=== PATIENT | female | born 1990 | race Caucasian/White ===

== ENCOUNTER 2016-08-09 15:21 | Emergency (ER) | payer OTHER ==
[2016-08-09 15:47] VITALS: RESP 16
--- NOTE | 2016-08-09 16:06 | EDPHY ---
H & P Stated Complaint: H/A, visual changes in R eye this morning;slight nausea.Better now Time Seen by Provider: 08/09/16 15:58 HPI/ROS: CHIEF COMPLAINT: Headache and blurry vision HISTORY OF PRESENT ILLNESS: The patient presents to the ED after she developed headache and blurry vision earlier today. The patient does report she had a history of frequent headaches protect the does not have visual complaints. The patient denies any history of fall or trauma. She denies neck pain or cervical manipulation. The patient denies any numbness or weakness in her extremities. The patient states that her headache has improved. She continues to complain of mild blurry vision in her right eye. She denies additional acute complaints aside from mild nausea. REVIEW OF SYSTEMS: A comprehensive 10 point review of systems is otherwise negative aside from elements mentioned in the history of present illness. Source: Patient Exam Limitations: No limitations - Personal History LMP (Females 10-55): Now Current Tetanus Diphtheria and Acellular Pertussis (TDAP): Yes Tetanus Vaccine Date: 2006 - Medical/Surgical History Hx Asthma: Yes Other PMH: neg per hx - Social History Smoking Status: Never smoked - Physical Exam Exam: General Appearance: Alert, no distress Eyes: Pupils equal and round no pallor or injection ENT, Mouth: Mucous membranes moist Respiratory: There are no retractions, lungs are clear to auscultation Cardiovascular: Regular rate and rhythm Gastrointestinal: Abdomen is soft and nontender, no masses, bowel sounds normal Neurological: A&O, normal motor function, normal sensory exam, normal cranial nerves Skin: Warm and dry, no rashes Musculoskeletal: Neck is supple nontender Extremities: symmetrical, full range of motion Constitutional: Initial Vital Signs Temperature (C) 36.6 C 08/09/16 15:35 Heart Rate 85 08/09/16 15:35 Respiratory Rate 16 08/09/16 15:35 Blood Pressure 136/72 H 08/09/16 15:35 O2 Sat (%) 99 08/09/16 15:35 O2 Delivery Mode Room Air Allergies/Adverse Reactions: acetaminophen Allergy (Intermediate, Verified 08/09/16 15:44) Hives latex [Latex] Allergy (Mild, Verified 06/17/10 01:12) Rash Home Medications: Medication Instructions Recorded NK [No Known Home Meds] 08/09/16 Medical Decision Making ED Course/Re-evaluation: The patient had an IV established. She received a L of normal saline. The patient was offered Toradol and Phenergan but declined. The patient's CBC and chemistries are within normal limits. The patient had serial examinations in the ED by myself over a 2 hour period. The patient states that her headache blurry vision have both resolved. She does complain of mild ongoing nausea. At this point time I do believe the patient likely experienced a migraine headache characterized by headache, blurry vision and nausea. The patient has declined any medications in the emergency department. The patient specifically has no evidence of fever or any abnormalities noted on her neurologic examination. At this point time I do feel that she can be discharged home. She does understand to return to the ED for recurrent headache, development of any abnormal neurologic symptoms, fever or other concerns. She will follow up with her primary care provider at the [facility]. She is also been given the telephone number of the neurologist at the [facility]. Differential Diagnosis: Differential diagnosis considered includes tension headache, metabolic abnormality, state, migraine headache - Data Points Laboratory Results: Laboratory Results 08/09/16 16:20 08/09/16 16:20 08/09/16 08/09/16 08/09/16 16:28 16:20 16:20 WBC 6.80 10^3/uL 10^3/uL (3.80-9.50) RBC 4.92 10^6/uL 10^6/uL (4.18-5.33) Hgb 15.0 g/dL g/dL (12.6-16.3) Hct 43.5 % % (38.0-47.0) MCV 88.4 fL fL (81.5-99.8) MCH 30.5 pg pg (27.9-34.1) MCHC 34.5 g/dL g/dL (32.4-36.7) RDW 12.5 % % (11.5-15.2) Plt Count 271 10^3/uL 10^3/uL (150-400) MPV 10.0 fL fL (8.7-11.7) Neut % (Auto) 55.3 % % (39.3-74.2) Lymph % (Auto) 34.9 % % (15.0-45.0) Louisa % (Auto) 6.5 % % (4.5-13.0) Eos % (Auto) 2.8 % % (0.6-7.6) Baso % (Auto) 0.4 % % (0.3-1.7) Nucleat RBC Rel Count 0.0 % % (0.0-0.2) Absolute Neuts (auto) 3.76 10^3/uL 10^3/uL (1.70-6.50) Absolute Lymphs (auto) 2.37 10^3/uL 10^3/uL (1.00-3.00) Absolute Monos (auto) 0.44 10^3/uL 10^3/uL (0.30-0.80) Absolute Eos (auto) 0.19 10^3/uL 10^3/uL (0.03-0.40) Absolute Basos (auto) 0.03 10^3/uL 10^3/uL (0.02-0.10) Absolute Nucleated RBC 0.00 10^3/uL 10^3/uL (0-0.01) Immature Gran % 0.1 % % (0.0-1.1) Immature Gran # 0.01 10^3/uL 10^3/uL (0.00-0.10) Sodium 142 mEq/L mEq/L (134-144) Potassium 4.1 mEq/L mEq/L (3.5-5.2) Chloride 105 mEq/L mEq/L (97-110) Carbon Dioxide 26 mEq/l mEq/l (22-31) Anion Gap 11 mEq/L mEq/L (8-16) BUN 10 mg/dL mg/dL (7-23) Creatinine 0.9 mg/dL mg/dL (0.6-1.0) Estimated GFR > 60 Glucose 94 mg/dL mg/dL (70-100) Calcium 9.8 mg/dL mg/dL (8.5-10.4) Beta HCG, Qual NEGATIVE Medications Given: Discontinued Medications Sodium Chloride (Ns) 1,000 mls @ 0 mls/hr IV ONCE ONE PRN Reason: Wide Open Stop: 08/09/16 16:15 Last Admin: 08/09/16 16:30 Dose: 1,000 mls Departure - Departure Disposition: Home, Routine, Self-Care Clinical Impression: Migraine headache Qualifiers: Migraine type: with aura Condition: Good Instructions: Migraine Headache (ED) Additional Instructions: 1. Please take ibuprofen as needed for headache. 2. Please return to the ED immediately for recurrent headache, recurrent blurry vision, the development of any new neurologic symptoms, fever or other concerns. 3. Please follow up with your primary care provider at the [facility]. If you continue to developed mild symptoms of an intermittent headache I do recommend following up with Neurology for further evaluation. You have been given the contact number of Dr. Lr at the [facility] who is a practicing neurologist. Referrals: Eliz March PA [Primary Care Provider] - As per Instructions Sonia Lr DO [Non Staff and Non MD] - As per Instructions
[2016-08-09 16:10] VITALS: O2SAT 98
[2016-08-09] MEDS ORDERED: NS 1,000 ML IV ONE (16:14)
[2016-08-09 16:38] LABS: % IMMATURE GRANULYOCYTES 0.1 % (0.0-1.1); ABSOLUTE IMMATURE GRANULOCYTES 0.01 10^3/uL (0.00-0.10); ADD DIFF? NO; ADD MORPH? NO; ADD SCAN? NO; ATYPICAL LYMPHOCYTE FLAG 10 (0-99); FRAGMENT RBC FLAG 0 (0-99); HEMATOCRIT 43.5 % (38.0-47.0); LEFT SHIFT FLG 0 (0-99); LIPEMIA HEMOLYSIS FLAG 90 (0-99); MEAN CELL HEMOGLOBIN 30.5 pg (27.9-34.1); MEAN CELL HEMOGLOBIN CONCENTR. 34.5 g/dL (32.4-36.7); MEAN CELL VOLUME 88.4 fL (81.5-99.8); PLATELET CLUMPS FLAG 10 (0-99); PLATELET COUNT 271 10^3/uL (150-400); RED BLOOD CELL COUNT 4.92 10^6/uL (4.18-5.33); RED CELL DISTRIBUTION WIDTH 12.5 % (11.5-15.2)
[2016-08-09 16:53] LABS: ANION GAP 11 mEq/L (8-16); CALCIUM 9.8 mg/dL (8.5-10.4); CARBON DIOXIDE 26 mEq/l (22-31); CHLORIDE 105 mEq/L (97-110); CREATININE 0.9 mg/dL (0.6-1.0); GLOMERULAR FILTRATION RATE > 60; GLUCOSE 94 mg/dL (70-100); POTASSIUM 4.1 mEq/L (3.5-5.2); SODIUM 142 mEq/L (134-144)
[2016-08-09 18:07] VITALS: BP 108/59; PULSE 65; TEMP 98.6
== END 2016-08-09 18:09 | disposition home or self-care (01) ==
DX: G43.109 Migraine with aura, not intractable, without status migrainosus (principal); J45.909 Unspecified asthma, uncomplicated; Z91.040 Latex allergy status

== ENCOUNTER → 2017-07-01 | Outpatient (CLI) | payer OTHER | LOC: FIMAGING 07:51 | PROVIDERS: ATTEND Physician Assistant | DX: N63.20 Unspecified lump in the left breast, unspecified quadrant (principal); Z80.3 Family history of malignant neoplasm of breast ==

== ENCOUNTER → 2017-07-20 | Outpatient (CLI) | payer OTHER ==
[~2017-07-20] MED LIST: GADOBUTROL 10 ML VIAL IVP ONE
== END ==
LOC: FIMAGING 13:48
PROVIDERS: ATTEND Surgery
DX: N63.21 Unspecified lump in the left breast, upper outer quadrant (principal); N63.22 Unspecified lump in the left breast, upper inner quadrant; Z80.3 Family history of malignant neoplasm of breast
CPT/HCPCS: 0159T; A9585; C8908

== ENCOUNTER 2017-08-26 06:44 | Observation (INO) | payer OTHER ==
[2017-08-26] MEDS ORDERED: ceFAZolin 2 GM/SWFI 2 GM/20 ML SYR IVP ONE (06:53)
[2017-08-26] MEDS ORDERED: LR 1,000 ML IV ONE (06:54)
[2017-08-26] MEDS ORDERED: ceFAZolin 2 GM/DEXTROSE 100 ML IV ONE (07:00)
--- NOTE | 2017-08-26 07:48 | PDHPUP ---
History & Physical Update H&P update statement: This history and physical update is based on an assessment of the patient which was completed after admission or registration (within 24 hours), but prior to the surgery/procedure. H&P update: H&P reviewed & patient examined, no change in patient's condition since H&P completed
[2017-08-26] MEDS ORDERED: MIDAZOLAM 2 MG/2 ML VIAL IVP ONE (10:00)
--- NOTE | 2017-08-26 10:00 | PDANEPAE ---
ANE History of Present Illness 26 year old with breast mass ANE Past Medical History - Cardiovascular History Hx Hypertension: No Hx Arrhythmias: Yes Hx Chest Pain: No Hx Coronary Artery / Peripheral Vascular Disease: No Hx CHF / Valvular Disease: No Hx Palpitations: Yes Cardiovascular History Comment: holter moniter 2009. pt does experience some palpitation, which has increased in frequency over the last few days. - Pulmonary History Hx Asthma/Reactive Airway Disease: Yes Hx Oxygen in Use at Home: No Hx Sleep Apnea: No Sleep Apnea Screening Result - Last Documented: Negative Pulmonary History Comment: enviromental allergens, uses rescue inhaler - Neurologic History Hx Cerebrovascular Accident: No Hx Seizures: Yes Hx Dementia: No Neurologic History Comment: hx of childhood seizure, last @6-7 yrs ago - Endocrine History Hx Diabetes: No - Renal History Hx Renal Disorders: No - Liver History Hx Hepatic Disorders: No - Neurological & Psychiatric Hx Hx Neurological and Psychiatric Disorders: Yes Neurological / Psychiatric History Comment: situational anxiety - Cancer History Hx Cancer: Yes Cancer History Comment: new dx of Breast CA - Congenital Disorder History Hx Congenital Disorders: Yes Congenital History Comment: breast cancer - GI History Hx Gastrointestinal Disorders: Yes Gastrointestinal History Comment: IBS controlled by diet - Other Health History Other Health History: eczma around hair line - Chronic Pain History Chronic Pain: Yes (left rhumboid) - Surgical History Prior Surgeries: none ANE Review of Systems Review of systems is: negative Review of Systems: - Exercise capacity METS (RN): 6 METS ANE Patient History - Allergies Allergies/Adverse Reactions: acetaminophen Allergy (Intermediate, Verified 08/25/17 12:55) Hives latex [Latex] Allergy (Mild, Verified 08/25/17 12:55) Rash gluten Allergy (Verified 08/25/17 13:01) Other-Enter Comments - Home Medications Home medications: home medication list seen and reviewed Home Medications: Ascorbic Acid [Vitamin C 500 mg (*)] 500 mg PO DAILY 08/24/17 [Last Taken ] Herbals/Supplements -Info Only 1 ea PO DAILY 08/24/17 [Last Taken 08/23/17] Ibuprofen [Motrin (*)] 200 mg PO DAILY PRN 08/24/17 [Last Taken 2 Weeks Ago ~] - NPO status NPO Status: no food or drink >8 hours NPO Since - Liquids (Date): 08/25/17 NPO Since - Liquids (Time): 22:30 NPO Since - Solids (Date): 08/25/17 NPO Since - Solids (Time): 22:30 - Smoking Hx Smoking Status: Never smoked - Family Anes Hx Family Hx Anesthesia Complications: mother had serious issues ? allergic reaction ANE Labs/Vital Signs - Vital Signs Blood Pressure: 109/63 Heart Rate: 93 Respiratory Rate: 18 O2 Sat (%): 99 Height: 154.94 cm Weight: 55.792 kg ANE Physical Exam - Airway Neck exam: FROM Mallampati Score: Class 1 Mouth exam: normal dental/mouth exam - Pulmonary Pulmonary: no respiratory distress, clear to auscultation - Cardiovascular Cardiovascular: regular rate and rhythym - ASA Status ASA Status: II ANE Anesthesia Plan Anesthesia Plan: GA w LMA
[2017-08-26] MEDS ORDERED: SCOPOLAMINE HYDROBROMIDE 1 MG/3 DAYS PATCH TD ONE (10:06)
[2017-08-26] MEDS ORDERED: THROMBIN (BOVINE) 20,000 UNIT SPRAY TP ONE (10:11)
[2017-08-26] MEDS ORDERED: BUPIVACAINE 0.5% 30 ML SDV ONE (10:12)
[2017-08-26] MEDS ORDERED: SCOPOLAMINE HYDROBROMIDE 1 MG/3 DAYS PATCH TD SCH (10:15)
[2017-08-26] MEDS ORDERED: PROPOFOL 200 MG/20 ML VIAL ONE (10:22)
[2017-08-26] MEDS ORDERED: fentaNYL 100 MCG/2 ML INJ ONE ×3 (10:22→12:32)
[2017-08-26] MEDS ORDERED: PROMETHAZINE HCL 25 MG/ML INJ IVP PRN (12:22)
[2017-08-26] MEDS ORDERED: NALOXONE HCL 0.4 MG/ML INJ IVP PRN (12:22)
[2017-08-26] MEDS ORDERED: fentaNYL 100 MCG/2 ML INJ IVP PRN (12:22)
--- NOTE | 2017-08-26 12:52 | POSTOPPROG ---
Post Op Note Date of Operation: 08/26/17 Surgeon: Eliz Laughlin Anesthesiologist: warm Anesthesia: GET(General Endotracheal) Pre-op Diagnosis: L breast mass Post-op Diagnosis: L breast mass Indication: 26 yo with l breast mass Procedure: B mastectomy L SLN Findings: Firm mass, neg lymph node Inf/Abcess present in the surg proc area at time of surgery?: No EBL: Minimal Specimen(s): B breast short superior long lateral, L sln
[2017-08-26] MEDS ORDERED: traMADol 50 MG TAB PO PRN (12:53)
[2017-08-26] MEDS ORDERED: ONDANSETRON 4 MG/2 ML VIAL IVP PRN (12:54)
[2017-08-26] MEDS ORDERED: ONDANSETRON DISINTEGRATING 4 MG TAB PO PRN (12:54)
--- NOTE | 2017-08-26 14:05 | POSTANESTH ---
Post Anesthetic Evaluation Cardiovascular Status: Normal, Stable Respiratory Status: Normal, Stable Level of Consciousness/Mental Status: Can Participate in Eval Pain Control: Adequate, Prn Tx Ordered Nausea/Vomiting Control: Adequate, Prn Tx Ordered Complications Possibly Related to Anesthesia: None Noted
--- NOTE | 2017-08-26 16:35 | SOAPPROG ---
SOAP Progress Note Assessment/Plan: Assessment: POD # 0 s/p b mastectomy L sln and no recon for L breast mass SLN negative Doing very well Likely home tomorrow with drains and Tramadol Plan: 08/26/17 16:33 Objective: Vital Signs Temp Pulse Resp BP Pulse Ox 36.3 C 65 17 96/57 L 95 08/26/17 15:23 08/26/17 15:23 08/26/17 15:23 08/26/17 15:23 08/26/17 15:23 08/25/17 08/26/17 08/27/17 05:59 05:59 05:59 Intake Total 900 Output Total 150 Balance 750 ICD10 Worksheet Patient Problems: Problems Problem Status Onset Breast mass in female Acute - ICD10 Problem Qualifiers (1) Breast mass in female
[2017-08-26] MEDS: IBUPROFEN 600 MG TAB PO PRN (17:53)
[2017-08-27] MEDS: IBUPROFEN 600 MG TAB PO PRN ×2 (05:08→10:57)
--- NOTE | 2017-08-27 06:40 | GOP ---
[f rep st] OPERATIVE REPORT DATE OF OPERATION: 08/26/2017 SURGEON: Eliz Laughlin MD ANESTHESIA: General. ANESTHESIOLOGIST: Mihai Palmer MD PREOPERATIVE DIAGNOSIS: Left breast mass. POSTOPERATIVE DIAGNOSIS: Left breast mass. PROCEDURE PERFORMED: Bilateral mastectomy with left sentinel lymph node. FINDINGS: A firm mass in the left breast, negative sentinel lymph node. SPECIMENS: Each breast was marked short superior, long lateral, left sentinel lymph node. ESTIMATED BLOOD LOSS: Minimal. INDICATIONS: The patient is a 26-year-old woman who noted a developing breast mass. Her mother had recently of breast cancer, and the patient did not desire preoperative biopsy. She did have a PET scan which showed a PET avid mass and no distant disease. She decided to proceed with bilateral mastectomy and left sentinel lymph node. DESCRIPTION OF PROCEDURE: Patient was brought into the operating room, placed supine on the table, and general anesthesia was administered. Her bilateral neck, chest and axilla were prepped and draped in the usual sterile fashion. I started on the right side. I made an ellipse around the right nipple and areolar complex. I created superior and inferior skin flaps. My dissection occurred to the clavicle, sternum, inframammary fold, and mid axillary line. I removed the breast, leaving the pectoralis fascia behind. I marked the breast short superior, long lateral. Hemostasis was achieved. A 15 round silicone drain was placed and sutured into place with 3-0 Nylon. This wound was closed with 3-0 Vicryl, followed by 4-0 Monocryl. In a similar fashion on the left side, I made an ellipse including the skin over the mass. I created superior and inferior skin flaps again. My dissection occurred to the clavicle, sternum , inframammary fold, mid axillary line. I removed the breast from the pectoralis muscle. I was able to use the gamma probe to identify the sentinel node. It was very superficial in her axilla. I excised this and sent this to Pathology. It returned negative. Hemostasis was achieved. A drain was placed. Each was sutured into place with 3-0 nylon. I closed the wound with 3-0 Vicryl, followed by a Quill suture. [place] silver Mepilex dressings were placed. She was awakened in the operating room, extubated, transferred to PACU in stable condition. /[id number]/MODL MTDD
[2017-08-27 08:52] VITALS: BP 101/58
--- NOTE | 2017-08-27 08:59 | SOAPPROG ---
SOAP Progress Note Assessment/Plan: Assessment: 26 FEMALE SP ALEX MASTECTOMIES, PATH PENDING DOING WELL, AFEBRILE, NO LABS DONE MODERATE CARON DRAINAGE BUT THIN WOUNDS OK CHEST CLEAR COR RR Plan:HOME TODAY/ PT ONLY WANTS [facility] 08/27/17 08:56 Objective: Vital Signs Temp Pulse Resp BP Pulse Ox 36.8 C 59 L 16 101/58 L 97 08/27/17 08:30 08/27/17 08:30 08/27/17 08:30 08/27/17 08:30 08/27/17 08:30 08/26/17 08/27/17 08/28/17 05:59 05:59 05:59 Intake Total 1450 Output Total 230 Balance 1220 ICD10 Worksheet Patient Problems: Problems Problem Status Onset Breast mass in female Acute
--- NOTE | 2017-08-27 10:33 | ASMTCMCOM ---
CM Note CM Note Notes: Plan is or pt to DC today with no needs. Date Signed: 08/27/2017 10:32 AM Electronically Signed By:Domenica Henson LCSW
[2017-08-29] MEDS ORDERED: PATCH REMOVAL 1 EA PATCH TD SCH (10:03)
== END 2017-08-27 12:21 | disposition home or self-care (01) ==
LOC: F1N 06:44
PROVIDERS: ADMIT Surgery; ATTEND Surgery
PROC: 0HTV0ZZ Resection of Bilateral Breast, Open Approach (ICD-10-PCS; principal; 2017-08-26 09:45)
PROC: 07B60ZX Excision of Left Axillary Lymphatic, Open Approach, Diagnostic (ICD-10-PCS; principal; 2017-08-26 09:45)
DX: N63.20 Unspecified lump in the left breast, unspecified quadrant (principal); Z80.3 Family history of malignant neoplasm of breast
CPT/HCPCS: 19303; 38525; 78195; A9520; G0378; J0690; J2250; J2704; J3010